=== PATIENT | female | born 1950 | race Hispanic/Latino ===

== ENCOUNTER 2017-10-05 08:54 | Day surgery (SDC) | payer MEDICARE, OTHER ==
[2017-10-05] MEDS ORDERED: ATROPINE 0.1% (CARDIAC) ONE (11:03)
[2017-10-05] MEDS ORDERED: XYLOCAINE CARDIAC IV ONE (11:03)
[2017-10-05] MEDS ORDERED: NITROSTAT SL ONE (11:03)
[2017-10-05] MEDS ORDERED: ADRENALIN ONE (11:03)
[2017-10-05] MEDS ORDERED: NACL 0.9% 500 ML 500 ML ONE (11:19)
--- NOTE | 2017-10-05 12:05 | Short Stay Summary ---
Short Stay Documentation Date of service: 10/05/17 - History H&P: obtained from office - Allergies and Medications Current Medications: Allergies adhesive Allergy (Verified 10/05/17 09:49) Rash shellfish derived Allergy (Verified 10/05/17 09:49) Vomiting Home Medications Medication Instructions Recorded Confirmed Last Taken Type Aspirin [Adult Low Dose Aspirin EC] 81 mg PO DAILY 10/05/17 10/05/17 10/04/17 History AtorvaSTATin [Lipitor] 40 mg PO QHS 10/05/17 10/05/17 10/04/17 History Latanoprost 0.005% [Xalatan 0.005%] 1 drop OU QPM 10/05/17 10/05/17 10/04/17 History Melatonin/Pyridoxine [Melatonin 5 1 each PO QHS 10/05/17 10/05/17 10/04/17 History mg Tablet] Metoprolol Xl [Metoprolol 25 mg PO QDAY 10/05/17 10/05/17 10/04/17 History SUCCINATE ER TAB] Mv,Marc,Min/Iron/Folic Acid/Lut 1 tab PO DAILY 10/05/17 10/05/17 10/04/17 History [Complete Multi Tablet] Flat Top-3 Fatty Acids/Fish Oil [Fish 1,000 mg PO TID 10/05/17 10/05/17 10/04/17 History Oil] - Physical exam General appearance: no acute distress Integumentary: no rash HEENT: Atraumatic Lungs: Clear to auscultation Breasts: deferred Heart: Regular rate Gastrointestinal: normal Female Genitourinary: deferred Rectal Exam: deferred Extremities: no ischemia Neurological: Normal gait - Brief post op/procedure progress note Date of procedure: 10/05/17 Pre-op diagnosis: Syncope Post-op diagnosis: same Procedure: TTT Anesthesia: none Findings: Reflex syncope Surgeon: GERALD FRANCO Estimated blood loss: none Pathology: none Condition: stable - Hospital course Hospital course: Uneventful - Disposition Condition at discharge: Good Disposition: DC-01 TO HOME OR SELFCARE Short Stay Discharge Plan Activity: advance as tolerated Weight Bearing Status: Weight Bear as Tolerated Diet: low salt Follow up with: NOE MARQUEZ MD [Primary Care Provider] - 7 Days
[2017-10-05 12:25] VITALS: BP 147/69
--- NOTE | 2017-10-06 03:49 | Tilt Table Report ---
INDICATION: Syncope. ORDERING PHYSICIAN: Augustin Hedrick MD DESCRIPTION OF PROCEDURE: After obtaining written consent, the patient was brought to the excavation laborer area. The patient was secured to the tilt table test. Blood pressure prior to tilting was 195/97 with a heart rate of 87 beats per minute. The patient was tilted to 85 degrees from horizontal. Three minutes after tilting, her blood pressure was 186/108 with a heart rate of 93 beats per minute. In the first passive phase, the patient's heart rate increased to 131, sinus tachycardia. Blood pressure was 193/120. The patient did not lose consciousness; however, she did describe feeling dizzy and lightheaded. The patient was subsequently given 0.4 mg of sublingual nitroglycerin. Exactly 6 minutes after the nitroglycerin dose, her blood pressure dropped from 174/98 to 109/64 and the patient lost consciousness. Heart rate at that time was 92 beats per minute. IMPRESSION: This is a positive tilt table test with a significant fall in blood pressure and loss of consciousness. The test is considered positive for reflex syncope. RECOMMENDATION: 1. Follow up with the referring supervisor maintenance and custodians. 2. The patient was reassured regarding the benign nature of reflex syncope. 3. The patient was educated to avoid potential triggers, to identify warning symptoms and whenever feasible to perform physical counterpressure maneuvers or lay supine with legs elevated when warning symptoms arise. JOB# [id number] ADRIANA/AARON
== END 2017-10-05 12:50 | disposition home or self-care (01) ==
LOC: CATHLABREC 08:54
PROVIDERS: ATTEND Internal Medicine
DX: R55 Syncope and collapse (principal); Z79.899 Other long term (current) drug therapy; Z79.82 Long term (current) use of aspirin; Z91.013 Allergy to seafood; Z91.09 Other allergy status, other than to drugs and biological substances
CPT/HCPCS: 93660; J7040; J0171; J0461; J2001